=== PATIENT | male | born 2000 | race Caucasian/White ===

== ENCOUNTER 2022-07-21 05:05 | Emergency (ER) | payer OTHER ==
[2022-07-21 06:06] LABS: SARS-CoV-2 NAA Rapid Test Not Detected (NotDetected)
== END 2022-07-21 06:20 | disposition home or self-care (01) ==
LOC: CSHERS 05:05
DX: J06.9 Acute upper respiratory infection, unspecified (principal); K21.9 Gastro-esophageal reflux disease without esophagitis; J45.909 Unspecified asthma, uncomplicated; Z20.822 Contact with and (suspected) exposure to COVID-19; Z79.899 Other long term (current) drug therapy
CPT/HCPCS: 71045; 93005; U0002